=== PATIENT | female | born 1990 | race Caucasian/White ===

== ENCOUNTER 2024-08-25 15:03 | Emergency (ER) | payer OTHER, SELFPAY ==
--- NOTE | 2024-08-25 15:06 | ED_ITS ---
HPI - Female Genitourinary General Chief complaint: Urogenital-Female Stated complaint: UTI/STD Time Seen by Provider: 08/25/24 15:14 Source: patient and RN notes reviewed Mode of arrival: ambulatory Limitations: no limitations History of Present Illness HPI Narrative: 34-year-old female presents to the [facility] with burning vaginally and with urination. Concern both for a UTI and STD. Patient reports a couple weeks ago she did have 1 night stand. Patient reports some discharge. Patient also concern for her hemorrhoids. Had some blood on toilet paper. Related Data Home Medications Medication Instructions Recorded Confirmed clonazepam 1 mg tablet 1 mg PO QPM 08/25/24 08/25/24 levothyroxine 25 mcg tablet 25 mcg PO QAM 08/25/24 08/25/24 methylphenidate HCl 18 mg 18 mg PO QAM 08/25/24 08/25/24 tablet,extended release 24 hr (Concerta) paroxetine HCl 30 mg tablet 30 mg PO QAM 08/25/24 08/25/24 topiramate 25 mg tablet 25 mg PO QHS 08/25/24 08/25/24 Allergies Allergy/AdvReac Type Severity Reaction Status Date / Time No Known Allergies Allergy Unverified 08/25/24 15:07 Review of Systems Review of Systems: All systems reviewed & are unremarkable except as noted in HPI and below Constitutional: Constitutional: Reports no additional constitutional complaints ENT: Reports system reviewed and no additional complaints, except as documented Cardiovascular: Cardiovascular: Reports no additional cardiovascular complaints, Denies chest pain and Denies dyspnea Respiratory: Respiratory: Reports no additional respiratory complaints, Denies chest congestion, Denies cough and Denies dyspnea Gastrointestinal: Gastrointestinal: Reports as per HPI, Denies abdominal pain, Denies nausea and Denies vomiting Genitourinary: Genitourinary: Reports as per HPI Musculoskeletal: Musculoskeletal: Reports no additional musculoskeletal complaints Integumentary/Breasts: Skin/Breast: Reports system reviewed and no additional complaints, except as docu PMFSH Comments At the time of my signature, I reviewed and agree with the nursing past medical, surgical, social, and family history. There is no relevant family history pertinent to the patient complaint. Exam Const: General: cooperative, healthy appearing, comfortable, no acute distress, well developed, alert and well nourished Nutritional Appearance: well nourished Orientation/consciousness: patient oriented x3 Limitations: no limitations HENMT: Head: normal to inspection Ears: hearing grossly normal bilaterally and external ears normal Face/Nose/Sinus: Normal external nose present, normal facial exam and face symmetric Face and sinus: normal facial exam and face symmetric Eyes: General: appearance normal, both eyes and all related structures Alignment and Position: alignment normal Periorbital: periorbital findings normal Neck: Neck: normal visual inspection, full ROM, no lymphadenopathy and no me ningeal signs Chest: Chest palpation & inspection: normal inspection of the chest Resp: Effort & Inspection: normal respiratory effort and able to speak in complete sentences Cardio: Rate: regular rate GI: Other: 2 small nonthrombosed hemorrhoids, exter nal noted : General: Yes no CVA tenderness External Female Exam: normal external appearance Speculum Exam - Vagina: abnormal vaginal discharge white and other (Yeast buds noted); not malodorous, no swelling and nontender Other: Chaperoned by Karen ALEXANDER Skin: General skin exam: normal color and no rashes or lesions noted Lesions: no lesions Rashes: no rashes Wounds: no wounds Neuro: General: patient oriented x3, gait normal, tone normal, moves all extremities and no meningeal signs Cognition (Neuro): normal cognition Speech: normal speech Gait exam (Neuro): Normal gait present Extrem: General: normal to inspection, full ROM, capillary refill normal and normal gait Psych: Appearance: grossly normal and well kempt Mental Status: mental status grossly normal Speech and movement: Normal speech and movement present and Clear speech present Affect: normal affect Attitude: cooperative Course Course Level of Care: Express Care Visit Vital Signs Vital signs: Vital Signs Temperature 99.1 F 08/25/24 15:14 Pulse Rate 74 08/25/24 15:14 Respiratory Rate 20 08/25/24 15:14 Blood Pressure 121/67 08/25/24 15:14 Pulse Oximetry 99 08/25/24 15:14 Oxygen Delivery Room Air 08/25/24 15:14 Temperature 99.1 F 08/25/24 15:14 Pulse Rate 74 08/25/24 15:14 Respiratory Rate 20 08/25/24 15:14 Blood Pressure 121/67 08/25/24 15:14 Pulse Oximetry 99 08/25/24 15:14 Oxygen Delivery Room Air 08/25/24 15:14 Reviewed MDM - Female Genitourinary MDM Narrative Medical decision making narrative: Patient sitting in exam room. Nontoxic, vitals stable. Patient in no acute distress Urine dip shows probability of a UTI Will send STD panel Discussed with patient treatment now versus waiting, patient would prefer to wait will treat for UTI, BV and yeast Patient appropriate for outpatient treatment and follow-up Discharge instructions reviewed with patient, as well as provided in writing per nursing staff. The instructions also include specific and strict return/GO TO THE ER as well as f/u information. All questions have been answered, and the patient deny any further questions with discharge and discharge plan. Some parts of this dictation were generated by voice recognition software and may contain typographical and/or grammatical inaccuracies. Differential Diagnosis Differential diagnosis: Likely urinary tract infection, bacterial vaginosis, trichomoniasis and other (Gonorrhea, chlamydia) Lab Data Labs: Lab Results 08/25/24 08/25/24 08/25/24 Range/Units 15:21 15:32 15:35 POC Urine Color Yellow POC Urine Clarity Cloudy POC Urine pH 7.0 POC Ur Specif [place] 1.025 POC Urine Protein Negative (Negative) POC Ur Glucose (UA) Negative (Negative) POC Urine Ketones Negative (Negative) POC Urine Blood 2+ (Negative) POC Urine Nitrite Negative (Negative) POC Urine Bilirubin Negative (Negative) POC Urine Urobilinogen 1.0 POC U Leukocyte Esteras 1+ (Negative) POC Urine HCG, Qual Negative (Negative) C. trachomatis (PCR) Not detected (NOT DETECTE) N. gonorrhoeae (PCR) Not detected (NOT DETECTE) T. vaginalis (PCR) Detected A (NOT DETECTE) Bact Vaginosis Panel Pending Reviewed Critical Care Time Critical Care Time Critical Care Time: No Discharge Plan Discharge Clinical Impression: Urinary tract infection, Bacterial vaginosis, Vaginal yeast infection, Hemorrhoid, Concern about STD in female without diagnosis, Urine test negative Patient Disposition: Home, Self-Care Condition: Stable Instructions: Antibiotic Form, Bacterial Vaginosis (ED), Hemorrhoids (DC), Sexually Transmitted Diseases (ED), Safe Sex Practices (ED), Yeast Infection (ED) Additional Instructions: Today you have been tested for chlamydia, gonorrhea and Trichomonas. If you test positive we will call you within the next 72 hours. If you do test positive it is highly recommended that you follow-up with an STD Clinic, handout has been given to go If you have other concerns it is recommended you follow-up either with your primary care provider, teacher private provider or STD Clinic Urine test was negative Today your urine showed concerns for possible UTI. You have been treated with an antibiotic. Your urine was sent for culture. If for some reason the antibiotic we prescribed does not completely cover the bacteria that grows out we will call you Follow-up with your primary care provider For new or worsening symptoms go directly to the emergency room Patient Language: Faroese Prescriptions: New fluconazole 150 mg tablet 150 mg PO ONCE Qty: 1 0RF Rx Instructions: as a single dose metronidazole 500 mg tablet 500 mg PO Q12H Qty: 14 0RF nitrofurantoin monohyd/m-cryst [Macrobid] 100 mg capsule 100 mg PO Q12H 5 Days Qty: 10 0RF Rx Instructions: must administer with a meal/food No Action clonazepam 1 mg tablet 1 mg PO QPM topiramate 25 mg tablet 25 mg PO QHS levothyroxine 25 mcg tablet 25 mcg PO QAM paroxetine HCl 30 mg tablet 30 mg PO QAM methylphenidate HCl [Concerta] 18 mg tablet extended release 24hr 18 mg PO QAM Follow-up/Referrals: Tierra,HECTOR John [Primary Care Provider] - 1 Week ([facility] care follow up ) Stand Alone Forms: Work/School Release IP Time of Disposition: 15:46
[2024-08-25 15:14] VITALS: BP 121/67; PULSE 74; RESP 20; TEMP 37.3; O2SAT 99
[2024-08-25 15:34] LABS: BEDSIDEPREGUCG Negative (Negative); EDUAAPPEAR Cloudy; EDUABILI Negative (Negative); EDUABLOOD 2+ (Negative); EDUACOLOR1 Yellow; EDUAGLUCOSE Negative (Negative); EDUAKETONE Negative (Negative); EDUALEUKO 1+ (Negative); EDUANITRATE Negative (Negative); EDUAPROTEIN Negative (Negative); EDUASPGRAVITY 1.025
[2024-08-25 21:41] LABS: Trichomonas Vag PCR DETECTED (NOT DETECTE)
[2024-08-26 02:17] LABS: Chlamydia trachomatis NOT DETECTED (NOT DETECTE); Neisseria gonorrhoeae PCR NOT DETECTED (NOT DETECTE)
[2024-08-26 20:08] LABS: Bacterial Vaginosis NEGATIVE (NEGATIVE)
== END 2024-08-25 15:55 | disposition home or self-care (01) ==
PROVIDERS: Emergency Provider Nurse Practitioner; PCP Physician Assistant
DX: N39.0 Urinary tract infection, site not specified (principal); N76.0 Acute vaginitis; B37.31 Acute candidiasis of vulva and vagina; K64.4 Residual hemorrhoidal skin tags; A59.9 Trichomoniasis, unspecified; E03.9 Hypothyroidism, unspecified; F41.9 Anxiety disorder, unspecified; F32.A Depression, unspecified; F43.10 Post-traumatic stress disorder, unspecified
CPT/HCPCS: 81003; 81025; 81513; 87070; 87086; 87491; 87591; 87661; 99203; G0463